=== PATIENT | female | born 1955 | race Caucasian/White ===

== ENCOUNTER 2016-06-08 05:40 | Emergency (ER) | payer SELFPAY ==
[~2016-06-08 05:40] MED LIST: LANTUS100 U/ML SQ; LEVEMIR; LEVOTHYROXINE; LISINOPRIL5 MG PO; LOVASTATIN10 M1; OMEPRAZOLE D/R20 MG PO
== END 2016-06-08 08:52 | disposition home or self-care (01) ==
LOC: ED 05:40
DX: M25.561 Pain in right knee (principal); M25.562 Pain in left knee; M25.462 Effusion, left knee; R73.9 Hyperglycemia, unspecified
CPT/HCPCS: J1815; J1885

== ENCOUNTER → 2017-06-11 | Outpatient (CLI) | payer SELFPAY ==
[2016-06-08 08:47] VITALS: BP 114/72
[2017-06-11 11:35] LABS: HEMATOCRIT 46.2 % (37.0-47.0); HEMOGLOBIN 14.8 g/dL (12.5-16.0); MEAN PLATELET VOLUME 10.2 fl (7.4-10.4); RED BLOOD COUNT 4.93 M/mm3 (4.10-5.30); RED CELL DISTRIBUTION WIDTH 13.3 % (11.5-14.5); WHITE BLOOD COUNT 9.7 K/mm3 (4.8-10.8)
[2017-06-11 11:48] LABS: BUN/CREATININE RATIO 16.1 (6.0-26.0); CALCIUM 9.1 mg/dL (8.4-10.2); POTASSIUM 4.3 mmol/L (3.6-5.0); TOTAL BILIRUBIN 0.4 mg/dL (0.2-1.3); TOTAL PROTEIN 6.9 g/dL (6.3-8.2)
== END ==
LOC: LAB 11:18
PROVIDERS: Medical Genetics Clinical Genetics (M.D.)
DX: E11.9 Type 2 diabetes mellitus without complications (principal)

== ENCOUNTER → 2018-05-27 | Outpatient (CLI) | payer SELFPAY ==
[2016-06-08 08:47] VITALS: BP 114/72
[2018-05-27 12:00] LABS: CALCIUM 9.4 mg/dL (8.4-10.2); POTASSIUM 4.9 mmol/L (3.6-5.0)
== END ==
LOC: LAB 11:25
PROVIDERS: Family Medicine
DX: E11.9 Type 2 diabetes mellitus without complications (principal); I10 Essential (primary) hypertension; R25.2 Cramp and spasm

== ENCOUNTER → 2018-07-29 | Outpatient (CLI) | payer SELFPAY ==
[2018-07-06 18:30] VITALS: BP 110/65
[~2018-07-29] MED LIST changes: +LANTUS SOLOS100 U/ML SQ; +NOVOLOG FLEX100 U/ML SQ; +ONDANSETRON ODT8 MG PO
== END ==
LOC: LAB 11:13
DX: E03.9 Hypothyroidism, unspecified (principal)